=== PATIENT | female | born 1990 | race Caucasian/White ===

== ENCOUNTER → 2016-11-24 | Outpatient (REF) | LOC: COL.CARD 15:13 | DX: I45.6 Pre-excitation syndrome (principal) ==

== ENCOUNTER 2019-05-25 23:39 | Inpatient (IN) | payer BC ==
[~2019-05-25] VITALS: Ht 170.2 cm; Wt 81.4 kg
--- NOTE | 2019-05-25 23:45 | NUR ---
Here with spouse for SROM check . Denies ctx. Active baby. States had several episides of moisture from vagina but not continuous .is not wearing a pad. sve wihout gel. Scant mucousy moisture present not runny.Lifetrace not definate for srom. pt given pad and will ambulate 20 min then recheck for amnio fluid
[2019-05-26] VITALS (53 sets, daily range): BP systolic 119–170; BP diastolic 62–110; PULSE 68–148; TEMP 97.7–98.9
[2019-05-26] MEDS ORDERED: CALCIUM 600MG+D1 TAB PO (00:22)
[2019-05-26] MEDS ORDERED: PRENATAL TABLET PO (00:23)
--- NOTE | 2019-05-26 02:20 | NUR ---
PLAN OF CARE DISCUSSED WITH PT AND SPOUSE- WALKING AND BIRTHING BALL TO ENCOURAGE CTXS. PITOCIN AT 6 AM IF INDICATED FOR LABOR DUE TO SROM . QUESTIONS ADDRESSED.
[2019-05-26 02:54] LABS: BASO % 0.2 % (0.0-2.0); EOS # 0.1 (0.0-0.7); EOS % 0.4 % (0-4.0); GRAN # 11.5 (1.4-6.5); GRAN % 71.3 % (42.2-75.2); HEMATOCRIT 38.7 % (37.0-47.0); HEMOGLOBIN 13.5 g/dl (12.5-16.0); LYMPH # 3.1 (1.2-3.4); LYMPH % 19.5 % (20.0-51.0); MEAN CELL VOLUME 94 fl (80.0-100.0); MEAN CORPUSCULAR HEMOGLOBIN 33 pg (27.0-31.0); MEAN CORPUSCULAR HGB CONC 35 g/dl (33.0-37.0); MEAN PLATELET VOLUME 12.6 fl (7.4-10.4); MONO # 1.2 (0.1-0.6); MONO % 7.6 % (1.7-9.3); PLATELET COUNT 219 K/mm3 (130-400); RED BLOOD COUNT 4.11 M/mm3 (4.10-5.30); REDCELL DISTRIBUTION WIDTH-CV 13.2 % (11.5-14.5)
--- NOTE | 2019-05-26 04:13 | NUR ---
AMBULATES ,BIRTHING BALL AND ROCKER X 45 MIN. NOW SEATED IN ROCKER FOR EFM
--- NOTE | 2019-05-26 06:15 | NUR ---
Report from Sanam SO to assume care of patient at this time. Plan of care discussed with patient and spouse. Questions answered. Call light within reach.
[2019-05-26 08:14] LABS: COLLECTION METHOD CLEAN CATCH
[2019-05-26 08:20] LABS: PH 6 (5-8); SQUAMOUS EPITHELIAL 0-2 /hpf; URINE APPEARANCE Clear; URINE BACTERIA None Seen /hpf; URINE BILIRUBIN Negative (NEGATIVE); URINE BLOOD Negative (NEGATIVE); URINE COLOR Yellow; URINE GLUCOSE Negative (NEGATIVE); URINE KETONE Trace (NEGATIVE); URINE LEUKOCYTE ESTERASE Trace (NEGATIVE); URINE NITRATE Negative (NEGATIVE); URINE PROTEIN(semi-quant) Negative (NEGATIVE); URINE RBC 0-2 /hpf; URINE UROBILINOGEN Negative (NEGATIVE)
--- NOTE | 2019-05-26 08:20 | NUR ---
to bedside. Plan of care discussed. Questions answered. SVE /-2 per provider. AROM of forebag at 0822 by , moderate amount of clear fluid noted.
[2019-05-26 08:27] LABS: ALBUMIN 3.9 gm/dL (3.5-5.0); BILIRUBIN,TOTAL 0.3 mg/dL (0.0-1.0); CALCIUM 9.3 mg/dL (8.4-10.2); CREATININE, serum 0.64 (0.52-1.25); POTASSIUM 3.8 mmol/L (3.4-5.0); TOTAL PROTEIN 7.2 gm/dL (6.4-8.2)
--- NOTE | 2019-05-26 09:30 | NUR ---
0925: Patient back to bed from restroom. Sitting up for epidural placement. Bianka CUSTOMER OPERATIONS INTERN to bedside. 0931: Lidocaine. 0932: Single Shot given by Bianka SUAREZ. Epidural Catheter placed. 0935: Patient repositioned to left lateral.
--- NOTE | 2019-05-26 10:00 | NUR ---
0945: Marked variability noted x3 minutes followed by prolonged deceleration into 90bpm x5 minutes. Slow return to baseline x5 minutes. 0948: Patient repositioned to right lateral. IV bolus started. 0950: SVE 4/100/0. O2 on via facemask. Pitocin off. 0952: Patient repositioned to left lateral. 1000: FHR 130s. Will notify and continue to monitor closely.
--- NOTE | 2019-05-26 10:20 | NUR ---
Patient comfortable with epidural. Abdi catheter placed. SVE 5/100/0. Patient repositioned to left tilt with peanut ball in place. Patient encouraged to rest. at bedside. Call light within reach.
--- NOTE | 2019-05-26 11:40 | NUR ---
Patient reports resting well with epidural. SVE 6/100/0, bloody show noted on exam glove. Patient repositioned to right lateral with peanut ball in place. Denies pain or needs at this time. at bedside. Call light within reach.
--- NOTE | 2019-05-26 13:10 | NUR ---
to bedside. SVE Complete/+1. Patient repositioned to 'damián' position. Encouraged to notify nurse if rectal pressure or urge to push occur. at bedside. Call light within reach.
--- NOTE | 2019-05-26 16:05 | NUR ---
1350: Abdi catheter removed. Initial push. This RN remains at bedside during pushing until delivery. at unit desk. 1500: at bedside to evaluate patient. Updated to FHR, vital signs, pushing progress. 1524: [place] RN requested at bedside as nursery nurse. 1535: Red Rick catheter used to drain bladder by - 50ml yellow urine noted. 1545: Pitocin restarted at 2mu/min per . 1548: Spontaneous vaginal delivery of viable female assisted by over 2nd degree perineal laceration. Pitocin off. Infant care assumed by [place] RN at this time. 1600: Spontaneous vaginal delivery of placenta assisted by . 1605: Recovery period started. Fundus firm at D1, scant lochia noted.
[2019-05-27] VITALS: BP 123/80; PULSE 90; TEMP 98.4
[2019-05-27 04:00] VITALS: BP 131/86; PULSE 95; TEMP 98.2
[2019-05-27 09:00] VITALS: BP 128/83; PULSE 91; TEMP 97.8
[2019-05-27 16:00] VITALS: BP 112/56; PULSE 86; TEMP 97.9
[2019-05-27 21:00] VITALS: BP 122/82; PULSE 85; TEMP 98.4
[2019-05-28 08:40] VITALS: BP 134/75; PULSE 75; TEMP 97.3
[2019-05-28] MEDS ORDERED: IBU800 M1 PO (11:05)
== END 2019-05-28 15:30 | disposition home or self-care (01) | DRG 805 ==
LOC: LDRO 23:39 → LDR 23:51 → LDRO 05-26 01:37 → LDR 05-26 01:38 → OB 05-26 18:30
PROVIDERS: ADMIT Student in an Organized Health Care Education/Training Program
PROC: 10E0XZZ Delivery of Products of Conception, External Approach (ICD-10-PCS; principal; 2019-05-26)
PROC: 0KQM0ZZ Repair Perineum Muscle, Open Approach (ICD-10-PCS; 2019-05-26)
PROC: 3E033VJ Introduction of Other Hormone into Peripheral Vein, Percutaneous Approach (ICD-10-PCS; 2019-05-26)
DX: O42.92 Full-term premature rupture of membranes, unspecified as to length of time between rupture and onset of labor (principal); O99.42 Diseases of the circulatory system complicating childbirth; Z37.0 Single live birth; O70.1 Second degree perineal laceration during delivery; I45.6 Pre-excitation syndrome; Z3A.39 39 weeks gestation of pregnancy
CPT/HCPCS: J2590; J2795; J7120

== ENCOUNTER 2020-06-14 08:20 | Outpatient (CLI) | payer OTHER ==
[2020-06-14] VITALS (17 sets, daily range): BP systolic 101–128; BP diastolic 62–88; PULSE 71–107; TEMP 98.1
[~2020-06-14] VITALS: Ht 170.2 cm; Wt 72.3 kg
[~2020-06-14 08:20] MED LIST: CALCIUM 600MG+D1 TAB PO; IBU800 M1 PO; PRENATAL TABLET PO
--- NOTE | 2020-06-14 10:59 | NUR ---
Pt and spouse arrive ambulatory to floor at 0835. Pt states she has placenta previa and had bleeding this am starting at 0700. Pt called office and was told to come to labor and delivery. Pt states bleeding "looked like the start of a period", put on pad at 0715. Pad removed when here on unit, had small amount, approximatley pinky size, of brownish red bleeding on pad. No active bleeding at this time. Pt denies leaking of fluid and contractions, denies intercourse, reports good movement. EFM explained and placed, VS taken. FHR WNL, moderate variability with accelerations noted. Dr. Cintron notified. Orders received for IV fluids and labs.
[2020-06-14 11:17] LABS: BASO # 0.1 (0.0-0.2); BASO % 0.4 % (0.0-2.0); EOS % 0.2 % (0-4.0); GRAN # 9.3 (1.4-6.5); GRAN % 76.8 % (42.2-75.2); HEMATOCRIT 40.3 % (37.0-47.0); HEMOGLOBIN 13.8 g/dl (12.5-16.0); LYMPH # 1.9 (1.2-3.4); LYMPH % 15.7 % (20.0-51.0); MEAN CELL VOLUME 96 fl (80.0-100.0); MEAN CORPUSCULAR HEMOGLOBIN 33 pg (27.0-31.0); MEAN CORPUSCULAR HGB CONC 34 g/dl (33.0-37.0); MEAN PLATELET VOLUME 11.7 fl (7.4-10.4); MONO # 0.7 (0.1-0.6); MONO % 5.9 % (1.7-9.3); PLATELET COUNT 227 K/mm3 (130-400); RED BLOOD COUNT 4.19 M/mm3 (4.10-5.30); REDCELL DISTRIBUTION WIDTH-CV 12.8 % (11.5-14.5)
[2020-06-14 11:32] LABS: ALBUMIN 3.7 gm/dL (3.5-5.0); BILIRUBIN,TOTAL 0.4 mg/dL (0.0-1.0); CALCIUM 8.8 mg/dL (8.4-10.2); CREATININE, serum 0.57 (0.52-1.25); POTASSIUM 3.5 mmol/L (3.4-5.0); TOTAL PROTEIN 6.9 gm/dL (6.4-8.2)
--- NOTE | 2020-06-14 12:49 | NUR ---
1246 - Pt sitting up to eat lunch, FHR monitor tracing maternal heart rate, RN at bedside. Monitor adjusted, tracing FHR again at 1247.
--- NOTE | 2020-06-14 18:20 | NUR ---
Pt taken off monitors per physician and ambulated independently to room 218 accompanied by JUDAH Gonzalez.
--- NOTE | 2020-06-14 20:00 | NUR ---
2000 UP TO BR ON OWN AND VOIDED 400CC CLEAR URINE. SM 1 INCH SPOT ON V-PAD OF DARK BROWN DISCHARGE NOTED. NO BRIGHT RED BLEEDING NOTED. NOT PAIN PER PT. IV FLUIDS CONT. PT TAKES PO WELL
--- NOTE | 2020-06-14 22:00 | NUR ---
2200 UP TO BR AND VOIDS CL URINE. SCANT AMOUNT DARK BROWN DISCHARGE ON V-PAD. NO ACTIVE RED BLEEDING NOTED. EFM ON WITH BASELINE 130'S AND ACCELS TO 160'S WITH MOVEMENT. DR BHAGAT HERE AND ORDER TO D/C IV FLUIDS RECEIVED. 2230 IV TO INT.
[2020-06-15 04:00] VITALS: BP 98/58; PULSE 65; TEMP 98.2
--- NOTE | 2020-06-15 10:21 | NUR ---
Initial visit; Patient thanked Assistant Technician for looking in on her and keeping her in Assistant Technician's prayers.
== END 2020-06-15 11:40 | disposition home or self-care (01) ==
LOC: LDRO 08:20 → LDR 08:50 → OB 18:19 → LDRO 06-15 11:40
PROVIDERS: Obstetrics & Gynecology
DX: O26.853 Spotting complicating pregnancy, third trimester (principal); Z3A.30 30 weeks gestation of pregnancy
CPT/HCPCS: OP; G0378; J7120